=== PATIENT | male | born 1930 | race Caucasian/White ===

== ENCOUNTER 2017-09-17 13:33 | Inpatient (IN) | payer OTHER ==
[~2017-09-17] VITALS: Ht 177.8 cm; Wt 71.1 kg
[2017-09-17] MEDS ORDERED: ELIQUIS2.5 MG PO (13:54)
[2017-09-17] MEDS ORDERED: RISPERDAL2 MG PO (13:54)
[2017-09-17] MEDS ORDERED: TYLENOL EXTRA500 MG PO (13:55)
[2017-09-17] MEDS ORDERED: OMEPRAZOLE20 MG PO (13:55)
[2017-09-17 14:26] LABS: BASOPHIL (%) 0.5 % (0-1); EOSINOPHIL (%) 1.2 % (0-5); EOSINOPHIL COUNT 0.1 K/uL (0-0.3); HEMATOCRIT 45.1 % (38.0-50.0); HEMOGLOBIN 14.9 G/DL (12.5-16.6); IMMATURE GRANULOCYTE (%) 0.4 % (0.0-0.7); LYMPHOCYTE COUNT 2.4 K/uL (1.0-2.8); MCH 30.7 PG (29.0-34.0); MCV 92.8 FL (86-99); MONOCYTE (%) 8.8 % (3-12); MONOCYTE COUNT 0.7 K/uL (0-0.8); NEUTROPHIL (%) 60.1 % (45-76); NEUTROPHIL COUNT 4.9 K/uL (1.8-6.4); PLATELET COUNT 159 K/uL (156-360); RBC DIS.WIDTH-CV 14.3 % (11.8-14.6); RBC DIS.WIDTH-SD 48.9 % (39-53); RED BLOOD COUNT 4.86 M/uL (4.00-5.50); WHITE BLOOD COUNT 8.2 K/uL (4.1-10.2)
[2017-09-17 14:43] LABS: ALBUMIN 3.4 g/dL (3.2-4.8); CHLORIDE 110 mEq/L (99-109); SODIUM 140 mEq/L (136-147)
[2017-09-17 14:44] LABS: MAGNESIUM 2.1 mg/dL (1.3-2.7)
[2017-09-17 14:45] LABS: GLUCOSE 123 mg/dL (70-99)
[2017-09-17 14:46] LABS: TOTAL PROTEIN 6.4 g/dL (6.4-8.3); TROP-I INTERPRETATION NEGATIVE; TROPONIN-I 0.04 ng/mL (0.0-0.30)
[2017-09-17 14:47] LABS: TOTAL BILIRUBIN 0.9 mg/dL (0.0-1.0)
[2017-09-17 14:48] LABS: SERUM ETHYL ALCOHOL < 10 mg/dL
[2017-09-17 14:49] LABS: CREATININE 1.3 mg/dL (0.6-1.3); GFR ESTIMATE (CALCULATED) 56 mL/min/ (58.99-99999)
[2017-09-17 14:50] LABS: ALKALINE PHOSPHATASE 105 IU/L (3-129)
[2017-09-17 14:51] LABS: AST (GOT) 21 IU/L (2-34); UREA NITROGEN (BUN) 15 mg/dL (9-23)
[2017-09-17 14:52] LABS: SALICYLATE < 5.0 MG/DL (15-30)
[2017-09-17 14:53] LABS: ACETAMINOPHEN (TYLENOL) < 10 mcg/mL (10-30); ALT (GPT) 11 IU/L (3-49)
[2017-09-17 15:23] LABS: APPEARANCE CLEAR ((CLEAR)); BILIRUBIN NEGATIVE; BLOOD NEGATIVE; COLOR YELLOW ((YELLOW)); GLUCOSE (STRIP) NEGATIVE; KETONES NEGATIVE; LEUKOCYTES NEGATIVE; NITRITE NEGATIVE; PROTEIN (STRIP) 30; SPECIFIC GRAVITY 1.025 (1.000-1.030); UCUL ADDED? NO; UROBILINOGEN 0.2 MG/DL (0.2-1.0)
[2017-09-17 15:32] LABS: AMPHETAMINE NEGATIVE (500 ng/mL); BARBITURATES NEGATIVE (200 ng/mL); BENZODIAZEPINES NEGATIVE (150 ng/mL); BUPRENORPHINE NEGATIVE (10 ng/mL); COCAINE NEGATIVE (150 ng/mL); METHADONE NEGATIVE (200 ng/mL); METHAMPHETAMINE NEGATIVE (500 ng/mL); OPIATES (MORPHINE) NEGATIVE (100 ng/mL); OXYCODONE NEGATIVE (100 ng/mL); PHENCYCLIDINE NEGATIVE (25 ng/mL); PROPOXYPHENE NEGATIVE (300 ng/mL); THC CANNABINOIDS NEGATIVE (50 ng/mL); TRICYCLIC ANTIDEPRESSANTS NEGATIVE (300 ng/mL)
[2017-09-17 17:57] VITALS: BP 185/87
[2017-09-18] MEDS ORDERED: ELIQUIS2.5 MG PO (07:38)
[2017-09-18] MEDS ORDERED: PROTONIX20 MG PO (07:38)
[2017-09-18] MEDS ORDERED: RISPERDAL2 MG PO (07:38)
[2017-09-18] MEDS ORDERED: GERI-HYDROLAC140 GM TP (07:40)
[2017-09-18] MEDS ORDERED: RISPERDAL0.5 MG PO (07:41)
[2017-09-18] MEDS ORDERED: RISPERDAL1 MG PO (07:41)
[2017-09-18 07:45] VITALS: BP 123/69
[2017-09-18 15:35] VITALS: BP 115/56
[2017-09-18 15:41] LABS: FOLIC ACID (FOLATE) > 22.0 NG/ML (5.0-22.0)
[2017-09-19 07:18] VITALS: BP 137/75
[2017-09-19 15:33] VITALS: BP 151/70
[2017-09-20 07:44] VITALS: BP 173/79
[2017-09-20] MEDS ORDERED: CYANOCOBALAM1000 MCG PO (10:49)
[2017-09-20] MEDS ORDERED: DONEPEZIL HCL5 MG PO (10:49)
== END 2017-09-20 16:50 | disposition home or self-care (01) | DRG 57 ==
LOC: EME 13:33 → 1WEST 16:06 → EDOF 16:06 → 1WEST 16:06 → ENRESERV 17:35 → 1WEST 17:47
PROVIDERS: Emergency Medicine; Psychiatry & Neurology Psychiatry
DX: G30.1 Alzheimer's disease with late onset (principal); F02.81 Dementia in other diseases classified elsewhere, unspecified severity, with behavioral disturbance; I34.1 Nonrheumatic mitral (valve) prolapse; Z79.01 Long term (current) use of anticoagulants
CPT/HCPCS: 71045; 80053; 81003; 82607; 82746; 83735; 84443; 84484; 85025; 90837; 93005; 97165 GO; 99281; 99285; G0480

== ENCOUNTER 2017-09-28 23:18 | Emergency (ER) | payer OTHER ==
[~2017-09-28] VITALS: Ht 172.7 cm; Wt 70.2 kg
[~2017-09-28 23:18] MED LIST: CYANOCOBALAM1000 MCG PO; DONEPEZIL HCL5 MG PO; ELIQUIS2.5 MG PO; GERI-HYDROLAC140 GM TP; OMEPRAZOLE20 MG PO; PROTONIX20 MG PO; RISPERDAL0.5 MG PO; RISPERDAL1 MG PO; RISPERDAL2 MG PO; TYLENOL EXTRA500 MG PO
[2017-09-29 02:22] VITALS: BP 144/76
[2017-09-29] MEDS ORDERED: ATIVAN0.5 MG PO (14:14)
== END 2017-09-29 02:35 | disposition home or self-care (01) ==
LOC: EME → EDBD 23:18 → EME 23:18
DX: F03.91 Unspecified dementia, unspecified severity, with behavioral disturbance (principal); Z86.73 Personal history of transient ischemic attack (TIA), and cerebral infarction without residual deficits; Z79.01 Long term (current) use of anticoagulants
CPT/HCPCS: 90839; 99281; 99283

== ENCOUNTER 2017-09-29 02:50 | Emergency (ER) | payer OTHER ==
[~2017-09-29] VITALS: Ht 172.7 cm; Wt 70.2 kg
[2017-09-29 09:29] LABS: BASOPHIL (%) 0.6 % (0-1); EOSINOPHIL (%) 3.1 % (0-5); EOSINOPHIL COUNT 0.2 K/uL (0-0.3); HEMATOCRIT 39.3 % (38.0-50.0); HEMOGLOBIN 13.2 G/DL (12.5-16.6); IMMATURE GRANULOCYTE (%) 0.4 % (0.0-0.7); LYMPHOCYTE (%) 28.8 % (15-42); LYMPHOCYTE COUNT 1.5 K/uL (1.0-2.8); MCH 31.3 PG (29.0-34.0); MCHC 33.6 G/DL (30.0-36.0); MCV 93.1 FL (86-99); MONOCYTE (%) 13.5 % (3-12); MONOCYTE COUNT 0.7 K/uL (0-0.8); NEUTROPHIL (%) 53.6 % (45-76); NEUTROPHIL COUNT 2.8 K/uL (1.8-6.4); PLATELET COUNT 142 K/uL (156-360); RBC DIS.WIDTH-CV 15.2 % (11.8-14.6); RBC DIS.WIDTH-SD 51.8 % (39-53); RED BLOOD COUNT 4.22 M/uL (4.00-5.50); WHITE BLOOD COUNT 5.2 K/uL (4.1-10.2)
[2017-09-29 09:40] LABS: CHLORIDE 109 mEq/L (99-109); POTASSIUM 4.7 mEq/L (3.7-5.4); SODIUM 139 mEq/L (136-147)
[2017-09-29 09:41] LABS: GLUCOSE 90 mg/dL (70-99)
[2017-09-29 09:45] LABS: CREATININE 1.3 mg/dL (0.6-1.3); GFR ESTIMATE (CALCULATED) 56 mL/min/ (58.99-99999)
[2017-09-29 09:46] LABS: UREA NITROGEN (BUN) 12 mg/dL (9-23)
[2017-09-29 11:17] LABS: APPEARANCE CLEAR ((CLEAR)); BILIRUBIN NEGATIVE; BLOOD SMALL; COLOR STRAW ((YELLOW)); GLUCOSE (STRIP) NEGATIVE; KETONES NEGATIVE; LEUKOCYTES NEGATIVE; NITRITE NEGATIVE; PROTEIN (STRIP) NEGATIVE; SPECIFIC GRAVITY 1.005 (1.000-1.030); UROBILINOGEN 0.2 MG/DL (0.2-1.0)
[2017-09-29 11:22] LABS: BACTERIA NONE SEEN /HPF; EPITHELIAL CELLS NONE SEEN /HPF; MUCUS NONE SEEN /LPF; RED BLOOD CELLS 0-5 /HPF (0-5); WHITE BLOOD CELLS 0-5 /HPF (0-5)
[2017-09-29] MEDS ORDERED: ATIVAN0.5 MG PO (14:14)
[2017-09-29 14:25] VITALS: BP 140/65
== END 2017-09-29 14:29 | disposition home or self-care (01) ==
LOC: EME 02:50
PROVIDERS: Emergency Medicine
DX: F03.90 Unspecified dementia, unspecified severity, without behavioral disturbance, psychotic disturbance, mood disturbance, and anxiety (principal)
CPT/HCPCS: 71045; 80048; 81003; 85025; 99281; 99284

== ENCOUNTER 2017-11-25 15:51 | Emergency (ER) | payer OTHER ==
[~2017-11-25] VITALS: Ht 170.2 cm; Wt 60.4 kg
[~2017-11-25 15:51] MED LIST changes: +ATIVAN0.5 MG PO
[2017-11-25 19:13] VITALS: BP 123/72
== END 2017-11-25 19:15 | disposition home or self-care (01) ==
LOC: EME 15:51
DX: S70.02XA Contusion of left hip, initial encounter (principal); W06.XXXA Fall from bed, initial encounter; G30.9 Alzheimer's disease, unspecified; F02.80 Dementia in other diseases classified elsewhere, unspecified severity, without behavioral disturbance, psychotic disturbance, mood disturbance, and anxiety; K21.9 Gastro-esophageal reflux disease without esophagitis; Z90.49 Acquired absence of other specified parts of digestive tract
CPT/HCPCS: 73522; 99281; 99285

== ENCOUNTER 2017-12-04 10:44 | Emergency (ER) | payer OTHER | END 2017-12-04 13:00 | disposition home or self-care (01) | LOC: TRA 10:44 | DX: S00.91XA Abrasion of unspecified part of head, initial encounter (principal); W01.198A Fall on same level from slipping, tripping and stumbling with subsequent striking against other object, initial encounter; R41.82 Altered mental status, unspecified; I48.91 Unspecified atrial fibrillation; Z79.01 Long term (current) use of anticoagulants | CPT/HCPCS: 70450; 72125; 80048; 81003; 82150; 83690; 85025; 86850; 86900; 86901; 99281; 99284; G0480 ==

== ENCOUNTER 2018-01-07 05:38 | Emergency (ER) | payer OTHER ==
[~2018-01-07] VITALS: Ht 185.4 cm; Wt 60.9 kg
[2018-01-07 07:29] LABS: CHLORIDE 109 MEQ/L (99-109); CREATININE 1.3 MG/DL (0.6-1.3); GFR ESTIMATE (CALCULATED) 56 mL/min/ (58.99-99999); GLUCOSE 81 mg/dL (70-99); POTASSIUM 4.3 MEQ/L (3.7-5.4); SODIUM 142 MEQ/L (136-147); UREA NITROGEN (BUN) 20 mg/dL (9-23)
[2018-01-07 09:40] VITALS: BP 146/57
== END 2018-01-07 09:50 | disposition home or self-care (01) ==
LOC: EME 05:38
PROVIDERS: Physician Assistant
DX: S00.03XA Contusion of scalp, initial encounter (principal); S50.312A Abrasion of left elbow, initial encounter; S50.811A Abrasion of right forearm, initial encounter; W51.XXXA Accidental striking against or bumped into by another person, initial encounter; Y92.129 Unspecified place in nursing home as the place of occurrence of the external cause; R07.89 Other chest pain; K21.9 Gastro-esophageal reflux disease without esophagitis; G30.9 Alzheimer's disease, unspecified; F02.80 Dementia in other diseases classified elsewhere, unspecified severity, without behavioral disturbance, psychotic disturbance, mood disturbance, and anxiety
CPT/HCPCS: 70450; 71045; 80048; 99281; 99285

== ENCOUNTER 2018-02-21 19:44 | Emergency (ER) | payer OTHER ==
[~2018-02-21] VITALS: Ht 165.1 cm; Wt 58.8 kg
[2018-02-21 23:49] VITALS: BP 123/90
== END 2018-02-21 23:49 | disposition home or self-care (01) ==
LOC: EME 19:44
PROC: 0HQ1XZZ Repair Face Skin, External Approach (ICD-10-PCS; principal; 2018-02-21)
DX: S01.81XA Laceration without foreign body of other part of head, initial encounter (principal); S02.2XXA Fracture of nasal bones, initial encounter for closed fracture; W01.0XXA Fall on same level from slipping, tripping and stumbling without subsequent striking against object, initial encounter; Y92.199 Unspecified place in other specified residential institution as the place of occurrence of the external cause; G30.9 Alzheimer's disease, unspecified; F02.80 Dementia in other diseases classified elsewhere, unspecified severity, without behavioral disturbance, psychotic disturbance, mood disturbance, and anxiety; K21.9 Gastro-esophageal reflux disease without esophagitis; Z79.01 Long term (current) use of anticoagulants; Z90.49 Acquired absence of other specified parts of digestive tract
CPT/HCPCS: 70450; 70486; 99281; 99285